=== PATIENT | female | born 1950 | race Caucasian/White ===

== ENCOUNTER → 2023-06-07 09:08 | Day surgery (SDC) | payer MEDICARE, OTHER, SELFPAY ==
--- NOTE | 2023-06-07 10:53 | ITS.CL.CARDI ---
Hospital Staff Pharmacist - Cardioversion
Cardioversion
Procedure Report:
Date of Procedure:
Procedure: Cardioversion
Indication: Symptomatic atrial fibrillation
Performing Physician: Benjamín Esteves MD
Technique: The patient was brought to the holding area. Signed informed consent was obtained. A time out was called and performed. The patient was anesthetized by the anesthesia service. Anticoagulation status was reviewed and appropriate. R2 pads
were placed anteriorly and posteriorly. A 200 J synchronized biphasic shock restored atrial paced rhythm without significant bradycardia. There were no complications.
Conclusion: Uncomplicated cardioversion from atrial fibrillation to atrial paced rhythm.
Recommendation: Routine post cardioversion care. Continue ad terminal makeup operator anticoagulation.
[2023-06-07 11:08] VITALS: BMI 30.2
== END ==
LOC: CATH 09:08
PROVIDERS: ATTENDING PHYSICIAN Internal Medicine Cardiovascular Disease
DX: I48.91 Unspecified atrial fibrillation (principal); Z79.01 Long term (current) use of anticoagulants; I25.10 Atherosclerotic heart disease of native coronary artery without angina pectoris; Z95.5 Presence of coronary angioplasty implant and graft; E11.9 Type 2 diabetes mellitus without complications; Z79.84 Long term (current) use of oral hypoglycemic drugs
CPT/HCPCS: 92960; 93005

== ENCOUNTER → 2023-07-04 09:43 | Outpatient (REF) | payer MEDICARE, SELFPAY ==
[2023-07-04 10:45] LABS: % Basophils 0.7 % (0-2); % Eosinophils 3.6 % (0-6); % Immature Granulocytes 0.3 % (0-0.5); % Lymphocytes 18.3 % (20.5-51.1); % Monocytes 7.5 % (1.7-9.3); % Neutrophils 69.6 % (42.2-75.2); Absolute Basophils 0.1 10^3/uL (0-0.2); Absolute Eosinophils 0.2 10^3/uL (0-0.7); Absolute Lymphocytes 1.2 10^3/uL (1.2-3.4); Absolute Monocytes 0.5 10^3/uL (0.1-0.6); Absolute Neutrophils 4.7 10^3/uL (1.4-6.5); Hematocrit 42.6 % (37.0-47.0); Hemoglobin 14.5 g/dL (12.0-16.0); Mean Corpuscular Hgb 33.6 pg (27.0-31.0); Mean Corpuscular Volume 98.8 fL (81.0-99.0); Mean Platelet Volume 11.4 fL (7.4-10.4); Nucleated Red Blood Cells % 0 %; Platelet Count 267 10^3/uL (130-400); Red Blood Cell Count 4.31 10^6/uL (4.20-5.40); White Blood Cell Count 6.8 10^3/uL (4.8-10.8)
[2023-07-04 11:12] LABS: INR 2.93; PT 30.5 Sec (11.4-14.6)
[2023-07-04 11:35] LABS: ALT (SGPT) 32 U/L (0-35); AST (SGOT) 36 U/L (14-36); Albumin 3.9 g/dl (3.5-5.0); Alkaline Phosphatase 80 U/L (38-126); Blood Urea Nitrogen 23 mg/dl (7-17); Calcium 9.1 mg/dl (8.4-10.2); Carbon Dioxide 29 mmol/L (22-30); Chloride 98 mmol/L (98-107); Glucose 100 mg/dl (70-99); Magnesium 2.3 mg/dl (1.6-2.3); Potassium 3.7 mmol/L (3.5-5.1); Sodium 135 mmol/L (135-145); Total Bilirubin 0.7 mg/dl (0.2-1.3); Total Protein 6.7 g/dl (6.3-8.2); eGFR 59.49
== END ==
LOC: SDSPAT 09:43
PROVIDERS: ATTENDING PHYSICIAN Internal Medicine Cardiovascular Disease
DX: Z01.818 Encounter for other preprocedural examination (principal); I48.0 Paroxysmal atrial fibrillation
CPT/HCPCS: 36415; 80053; 83735; 85025; 85610; 86850; 86900; 86901; 93005

== ENCOUNTER 2023-07-11 08:05 | Day surgery (SDC) | payer MEDICARE, SELFPAY ==
--- NOTE | 2023-07-04 10:17 | HPS.HSE ---
Family Physician
-
Family Physician: INTERVIEWE UNKNOWN - PT NOT
Chief Complaint
-
Paroxysmal atrial fibrillation.
History of Present Illness
The patient is a 72-year-old female presenting today for paroxysmal atrial fibrillation. The patient reports marked fatigue, lightheadedness, and dizziness secondary to this diagnosis. She previously underwent pulmonary vein isolation for
her arrhythmia in 2021. She has also undergone 2 cardioversions, with the last occurring in May 2023. Unfortunately, her atrial fibrillation returned within 24 hours of her last cardioversion. She is on current pharmacological therapy with
Amiodarone and Carvedilol. She takes Coumadin for oral anticoagulation. She notes that her current symptoms are greatly interfering with her activities of daily living and are overall impacting her quality of life. She is interested in pursuing
pulmonary vein isolation again for further arrhythmia management. She denies any current complaints today such as chest pain, shortness of breath, vomiting, diarrhea, cough, sore throat, or fever.
Medical History
Past Medical History
Past Medical History: Reports Other
Additional Past Medical History:
1. Paroxysmal atrial fibrillation, status post pulmonary vein isolation, 2021, and cardioversion x2; pharmacological therapy with Amiodarone and Carvedilol, oral anticoagulation with Coumadin.
2. Asymptomatic hypotension.
3. Hyperlipidemia.
4. Coronary artery disease, status post PCI with Xience obtuse marginal stent 2020.
5. Ventricular tachycardia, status post biventricular ICD implant with subsequent generator change 05/2018.
6. Chronic systolic heart failure, reduced ejection fraction.
7. Dilated cardiomyopathy.
8. Status post [employer] Phil mechanical aortic valve replacement, 2001, on chronic Coumadin.
9. Mild-moderate mitral regurgitation.
10. Mild tricuspid regurgitation.
11. GERD.
12. Colon polyps.
13. Chronic nausea.
14. Degenerative disc disease.
15. Osteoarthritis, status post right total knee arthroplasty, 2013, and left total knee arthroplasty 2018.
16. Complex migraines.
17. Hypothyroidism.
18. Breast cancer, 1996, with recurrence 2001, status post left and right lumpectomy, radiation, and chemotherapy.
19. Melanoma, status post excision.
20. Depression.
21. Anxiety.
22. Osteopenia.
23. Acute bronchitis and UTI, mid May 2023, treated with antibiotic therapy.
24. Obesity, BMI 31.1.
Past Surgical History: Reports Other
Additional Past Surgical History:
1. Pulmonary vein isolation.
2. Cardioversion x2.
3. Transesophageal echocardiogram.
4. Biventricular ICD implant.
5. ICD generator change.
6. [employer] Phil mechanical aortic valve replacement.
7. Right total knee arthroplasty.
8. Left total knee arthroplasty.
9. .
10. Partial hysterectomy.
11. Bilateral oophorectomy.
12. Left foot surgery.
13. Left and right breast lumpectomy with lymph node excision.
14. Melanoma excision.
15. Bilateral cataract extraction.
16. Colonoscopy x3.
Social History
Tobacco: Non-smoker
Alcohol: None
Personal:
Living: Other (She lives with her in a one story home. )
Family History
Family History: Not pertinent
Allergies / Home Medications
Allergy/Medication List:
Home medications:
1. Acetaminophen 650 mg p.o. every 4 hours as needed.
2. Amiodarone 100 mg p.o. every evening.
3. Calcium with vitamin D 1 tablet p.o. every evening.
4. Carvedilol 6.25 mg p.o. twice a day.
5. Citalopram 40 mg p.o. daily.
6. Cyanocobalamin 1000 mcg p.o. daily.
7. Entresto 24-26 mg, 1 tablet p.o. twice a day.
8. Zetia 10 mg p.o. every evening.
9. Furosemide 40 mg p.o. daily.
10. Jardiance 10 mg p.o. daily.
11. Levothyroxine 112 mcg p.o. daily.
12. Pantoprazole 40 mg p.o. daily.
13. Potassium Chloride 10 meq p.o. daily.
14. Prolia 60 mg subcutaneous every 6 months.
15. Repatha 140 mg subcutaneous every 2 weeks.
16. Warfarin 3 mg p.o. every evening.
Allergies: Statins.
Review of Systems
-
A 12 point ROS was completed and negative except as noted: Yes
Physical Exam
Vital Signs
Blood pressure 99/58. Heart rate 71. Respirations 18. Pulse ox 95% on room air.
Height 5 feet, 3.5 inches. Weight 80.8 kg. BMI 31.1.
Physical Exam
General: Well Developed, Well Nourished and No Apparent Distress
HEENT: NormoCephalic, Moist mucous membranes, Atraumatic and PERRLA
Respiratory: Clear
Cardiac: Irregular Rhythm and Other (ICD site intact. )
GI: Soft, Non Tender, Non Distended and Other (Obese. )
Musculoskeletal: No Edema and Normal Gait & Station
Skin: Warm and Dry
Neuro: AO x 3 and No Motor Deficits
Laboratory Results
-
DIAGNOSTIC STUDIES as of 07/04/2023: White blood cell count 6.8. Hemoglobin 14.5. Platelet count 267,000. PT 30.5. INR 2.93. Sodium 135. Potassium 3.7. BUN 23. Creatinine 1.0. Glucose 100. Calcium 9.1. Magnesium 2.3. AST 36. ALT 32. Albumin 3.9.
Type and screen A positive.
EKG 07/04/2023: Ventricular-paced rhythm. Biventricular pacemaker detected.
Echocardiogram 02/08/2023: Severely reduced left ventricular systolic function with a visually estimated ejection fraction of 20-25% and 29% by Cummins's method of disks.�The ventricle is globally hypokinetic. Mildly dilated right ventricle. Mild
biatrial dilation. Mild to moderate mitral regurgitation.� Mitral annular calcification is present. A 25 mm [place] [employer] mechanical valve is in the aortic position with a mean gradient of 8 mmHg.�Trace aortic insufficiency. Mild tricuspid
regurgitation with estimated pulmonary artery systolic pressures of 20-25 mmHg. When compared to the most recent echocardiogram from 08/09/2022, there is been no significant change.
Cardiac catheterization 02/09/2023: Non-obstructive coronary artery disease. [id number]-OM1 stent from 2020 is widely patent.
Impression/Plan
-
IMPRESSION/PLAN:
1. Paroxysmal atrial fibrillation: The patient is a need of pulmonary vein isolation with Dr. Cooper Arias on 07/11/2023. The benefits and risks of the procedure have been explained to the patient. The patient understands these risks and wishes
to proceed. She will not be required to undergo a pre-procedural transesophageal echocardiogram as she has been compliant with her home oral anticoagulation. She is aware to continue her Coumadin up until the night prior to her procedure. She will
take no medications the morning of her procedure.
[2023-07-04 10:35] VITALS: BMI 31.1
[2023-07-11] VITALS (14 sets, daily range): BP systolic 89–111; BP diastolic 44–78; BMI 31.1
[2023-07-11 09:23] LABS: INR 2.44; PT 26.4 Sec (11.4-14.6)
--- NOTE | 2023-07-11 14:43 | ITS.CL.ABL ---
Gristmill Operator - Ablation
Ablation
Procedure Report:
ELECTROPHYSIOLOGIC STUDY AND POSSIBLE ABLATION
DATE: July 11, 2023
Primary Care Provider: Dr. Ramos Franco
Primary care worker: Dr. Marissa Arias
INDICATION:
Symptomatic Atrial Fibrillation and atrial tachycardia.
Persistent
HISTORY: See H and P.
Symptomatic AF, poorly controlled with attempted medical therapy.
She has a complex past medical history
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
disease and heart failure with reduced ejection fraction.
She has fluctuating left ventricular ejection fraction with heart failure with reduced ejection fraction. She is currently on good medications however low blood pressure and dizziness limits up-titration of medications and addition of Aldactone
(which she has failed on multiple occasions). Ejection fraction previously 45%, however has decreased to 20 to 25% that has been stable there since at least 09/2021.
She has history of coronary disease with cardiac catheterization and OM stent 10/2020. Left heart cath 02/09/2023 stable with patent prior stent and otherwise nonobstructive coronary disease.�
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
With recurrences of atrial tachyarrhythmia she is more symptomatic. More fatigued. She is poorly tolerated higher doses of amiodarone and is currently on 100 mg daily. Symptoms she relates the amiodarone includes fatigue a flushing sensation at
times and possibly nausea.
Electrocardiogram demonstrates atrial fibrillation with VVI pacing (left ventricular pacing via coronary sinus pacing lead) and corrected QT interval of 135 ms.
Blood work from July 04, 2023 is reviewed and demonstrates BUN and creatinine of 23 and 1 with estimated GFR of 60, potassium 3.7, sodium 135, normal LFTs. Hemoglobin and hematocrit 14.5 and 42.6. INR 2.9.
HAS-BLED:
Age
CHADSVASc: 3
CHF, NYHA Class 3 and HFrEF, EF 25%.
Age
F Gender
(Of note, she is chronically on warfarin anticoagulation due to mechanical aortic valve from 2001)
PRESENTING RHYTHM: Irregular atrial tachycardia with waffling activation sequence in the coronary sinus decapolar catheter
HISTORY: See H and P.
Symptomatic AF and AT, poorly controlled with attempted medical therapy.
ANTIARRHYTHMIC DRUG: Amiodarone 100 mg daily, continued
ANTICOAGULATION: Warfarin
'TIME-OUT': called and confirmed.
SEDATION/ANESTHESIA: provided via the anesthesia department using general anesthesia.
PROCEDURE:
Ultrasound Guidance performed by wv was utilized for femoral venous Vascular Access b/l.
A decapolar CS catheter was placed within the CS for mapping and pacing.
The intracardiac ultrasound catheter was positioned in the RA for continuous intracardiac ultrasound imaging.
Heparin bolus and infusion to target ACT at 300 -350 seconds was administered. Transseptal puncture was performed. This entailed advancing a sheath with dilator into the superior vena cava and withdrawing both (monitoring intracardiac ultrasound,
fluoroscopy and tip pressure) with the tip oriented toward the atrial septum. The fossa ovalis was engaged (indicated by sudden displacement of the sheath tip as well as tenting of the fossa seen on intracardiac ultrasound). Left atrial access
required a pass with the Brockenbrough needle extended. Left atrial catheter position was confirmed by pressure monitoring as well as fluoroscopy. The sheath was advanced over the dilator and positioned in the left atrium.
Cardioversion restored sinus rhythm. Atrial tachycardia resumed, irregular.
Geometry and voltage mapping was performed using the Medtronic Pulse Select PFA catheter and Navex 3-D electroanatomical mapping.
A 3-D map was created using Navex.
There is ostial isolation at the left superior pulmonary vein however there is lack of wide area antral ablation towards its dome.
The Medtronic Pulse Select PFA catheter and system was used for cardiac ablation. Catheter positioning was guided and confirmed using both I.C.E. and fluoroscopy.
Energy was applied to isolate left superior pulmonary vein and a wider area circumferential fashion.
During mapping, short runs of polymorphic VT nonsustained were observed then a sustained run was observed requiring external cardioversion.
During continued mapping as well as delivery of pulsed electric field ablation once again nonsustained VT/polymorphic VT followed by sustained polymorphic VT requiring external cardioversion was observed.
There is no direct correlation to energy charging or energy delivery. However given that there were repeated episodes of polymorphic VT requiring external cardioversion it was decided to exchange the PFA catheter for a traditional 4 mm irrigated
tip contact sensing RF ablation catheter. First however hide entry electroanatomical mapping was performed using the [employer] grid catheter which demonstrated that there is a gap at the right inferior pulmonary vein towards its posterior inferior
quadrant and there is near complete posterior wall isolation except for just outside the right inferior pulmonary vein towards the posterior wall of the left atrium.
Using radiofrequency energy delivery first the right inferior pulmonary vein was reactivated and then additional ablation lesion set to isolate the posterior wall of the left atrium was performed.
Care was taken to position the tip of the esophageal temperature probe at level of ablation to monitor closely for lumen esophageal temperature change. Fluoroscopically the esophagus is canted towards the left-sided pulmonary veins were no RF
energy was delivered. During RF energy delivery there is no appreciable change in luminal esophageal temperature.
During catheter manipulation there were salvos of sustained self terminating irregular atrial tachycardias most commonly with a proximal to distal activation sequence on the coronary sinus catheter. Differential pacing from both the proximal and
distal poles of the coronary sinus catheter demonstrated long post pacing intervals. It was then decided to map the right atrium with the high density grid mapping catheter but once again there is oscillation in both activation sequence as well as
cycle length of the tachycardia rendering it on mappable.
Of note, there is marked fractionation of electrical signals throughout the right atrium and this is likely playing a role in her recurrent atrial tachycardias.
I.C.E. :
Pre-Ablation Post-Ablation
LVEF: 20 % 20%
WMA: Global global
Pericardial effusion: None none
COMPLICATIONS:
Polymorphic ventricular tachycardia sustained x 2 episodes, both successfully cardioverted with external DC cardioversion.
-Not related to energy delivery
-Did occur with PVCs which were spontaneous.
-Of note, discussed with family afterwards and daughter tells me this has happened previously when she has received general anesthesia.
SUMMARY:
- Mapping and ablation to re-isolate the PVs
- Additional AF ablation set after PVI, reisolation of the left atrial posterior wall.
- 3-D Electroanatomical Mapping
- Intracardiac Ultrasound
Post ablation, I discussed today's findings and results with the patient's and daughter.
RECOMMENDATIONS:
- Observe in monitored bed.
- Maintain oral anticoagulation.
- Continue amiodarone at 100 mg daily to suppress recurrent mappable irregular atrial tachycardias
Of note, there is marked fractionation of electrical signals throughout the right atrium and this is likely playing a role in her recurrent atrial tachycardias.
I discussed with her family that if she is unable to tolerate amiodarone we could look into other options.
Her QT interval is not prolonged and renal function is essentially normal, we could consider dofetilide if it is not cost prohibitive
- PMVT which may be related to general anesthesia agents.
Of note propofol patient reported to have a variety of conduction system effects including effects on repolarization which may be proarrhythmic in some patients.
- Office visit with me in 3 months.
- Continue cardiovascular care with Dr Marissa Arias
Copy to:
Dr. Ramos Franco
Dr. Marissa Arias
[2023-07-11] MEDS: ANESTHETIC LOZENGE 1 LOZENGE PO (14:56)
--- NOTE | 2023-07-11 16:01 | CM ---
priced dofetilide with pts perscript plan- [employer] ([phone]) ----dofetilide will require a prior auth, it is a teir 4, but after it gets approved her monthly copay is $ 32.59.
the # to get prior auth is: [phone]
--- NOTE | 2023-07-11 16:21 | PTCARENOTE ---
Received patient from recovery area after PVI under GA. Patient AAO but sleepy and voice hoarse. Bilateral groin dressings are dry and intact with bilateral pedal pulses palpable, reinforced post activity restrictions. Oriented to room and plan of
care, AV paced on the monitor. Monitoring VS as per protocol, family at the bedside, call aldridge within reach.
--- NOTE | 2023-07-11 16:27 | CM ---
Chart reviewed. Patient is independent of ADLS, lives with her in a 1 STH, 2 JORGE, she does not use any DME but has SPC and walkers in the home. Plan is for the patient to return home. CM to follow
[2023-07-11] MEDS: COUMADIN 3 MG PO (18:01)
[2023-07-11] MEDS: ZETIA 10 MG PO (18:02)
[2023-07-11] MEDS: PACERONE 100 MG PO (18:02)
--- NOTE | 2023-07-11 18:38 | PTCARENOTE ---
Figure of 8 sutures removed from bilateral groins, 4x4 and tegaderm applied. No bleeding or hematoma noted, HOB elevated, patient waiting for dinner, offers no complaints, VSS.
[2023-07-11] MEDS: COREG PO (21:01)
[2023-07-11] MEDS: ENTRESTO 24 MG/26 MG PO (21:01)
--- NOTE | 2023-07-12 00:45 | PTCARENOTE ---
Received pt at handoff. B/l rodrigoin c/d/i. Pt ambulatory to bathroom. Assessment noted as documented. BP 89/40. Coreg and Entresto held per Genny Torres MD. Pt offers no complaints at this time. Currently resting in bed; call luis carlos w/in reach.
[2023-07-12 02:46] VITALS: BP 103/53
[2023-07-12 03:24] LABS: Hematocrit 33.1 % (37.0-47.0); Hemoglobin 11.8 g/dL (12.0-16.0); Mean Corp Hgb Conc. 35.6 g/dL (33.0-37.0); Mean Corpuscular Hgb 33.8 pg (27.0-31.0); Mean Corpuscular Volume 94.8 fL (81.0-99.0); Mean Platelet Volume 11.1 fL (7.4-10.4); Platelet Count 205 10^3/uL (130-400); Red Blood Cell Count 3.49 10^6/uL (4.20-5.40); Red Cell Dist. Width 13.9 % (11.5-14.5); White Blood Cell Count 7.1 10^3/uL (4.8-10.8)
[2023-07-12 03:47] LABS: PT 27.8 Sec (11.4-14.6)
[2023-07-12 03:49] LABS: Blood Urea Nitrogen 21 mg/dl (7-17); Calcium 8.7 mg/dl (8.4-10.2); Carbon Dioxide 26 mmol/L (22-30); Chloride 100 mmol/L (98-107); Estimated Creatinine Clearance 73 ml/min; Glucose 146 mg/dl (70-99); Magnesium 2.3 mg/dl (1.6-2.3); Potassium 3.7 mmol/L (3.5-5.1); Sodium 133 mmol/L (135-145); eGFR > 60.00
[2023-07-12 07:36] VITALS: BP 101/56
--- NOTE | 2023-07-12 08:11 | W.PN.CARDCBS ---
Addendum entered and electronically signed by Charles Becerra MD 07/12/23 13:20:
patient seen and examined
no VT overnight
AV pacing without atrial arrhythmia on telemetry
exam:
heent ncat
jvp 6 cor regular
lungs ctab
abd soft nt nd
no ext edema
aao x3
PCP: Ramos Franco MD
CDY: Marissa Arias MD
72 y/o, presents with recurrent symptomatic AFib, prior PVI 12/2021, notable markedly enlarged LA at 8cm, w/mechanical AVR in 2001. [id number] and has been maintained on warfarin with goal INR 2.5-3.5.
S/P Redo PVI with PFA. Intraop complicated with multiple episodes VT requiring defibrillation x2, as well as AFib with cardioversion. Marked fractionation of electrical signals in RA, likely contributing to recurrent atrial tachycardias.
Currently comfortable overnight, V/AV paced with underlying sinus rhythm, no VT/arrhythmia.
IMPRESSION:
AFib, prior PVI (12/2021)
Redo PVI with PFA and RFA, 07/11/23
Intraoperative nonsustained VT/polymorphic VT with defibrillation
LAE, 8cm
Mixed Ischemic/Non ischemic CMP
Chronic systolic HFrEF, 20-25%
prior ICD with Bi-V ICD upgrade (09/2021)
Bilateral breast cancer in 1996 and 2001, s/p lumpectomies, XRT, and chemo with Adriamycin
CAD, prior OM PCI (2020)
, s/p mechanical AVR (2001)
Mod-Sev MR, Severe TR
Hypothyroid
HLD
PLAN:
Tele- V/AV paced, underlying sinus rhythm, no VT/arrhythmias
groin sites stable, OOB ambulating
continue warfarin- INR 2.6 this morning
continue amiodarone 100mg daily- intolerant of higher doses with fatigue, flushing, nausea
if 100mg becomes intolerant, can consider dofetilide- would need prior auth before starting- see CM note
PMVT possibly r/t general anesthesia, propofol- none overnight on tele
BP 90-100s overnight- this is baseline, asymptomatic
Followup with Dr. Arias as arranged
Home today
Original Note:
Today's Communication / Plan
-
continue warfarin, amiodarone
followup w/Dr. Arias
home today
Impression / Plan
-
PCP: Ramos Franco MD
CDY: Marissa Arias MD
72 y/o, presents with recurrent symptomatic AFib, prior PVI 12/2021, notable markedly enlarged LA at 8cm, w/mechanical AVR in 2001. [id number] and has been maintained on warfarin with goal INR 2.5-3.5.
S/P Redo PVI with PFA. Intraop complicated with multiple episodes VT requiring defibrillation x2, as well as AFib with cardioversion. Marked fractionation of electrical signals in RA, likely contributing to recurrent atrial tachycardias.
Currently comfortable overnight, V/AV paced with underlying sinus rhythm, no VT/arrhythmia.
IMPRESSION:
AFib, prior PVI (12/2021)
Redo PVI with PFA and RFA, 07/11/23
Intraoperative nonsustained VT/polymorphic VT with defibrillation
LAE, 8cm
Mixed Ischemic/Non ischemic CMP
Chronic systolic HFrEF, 20-25%
prior ICD with Bi-V ICD upgrade (09/2021)
Bilateral breast cancer in 1996 and 2001, s/p lumpectomies, XRT, and chemo with Adriamycin
CAD, prior OM PCI (2020)
, s/p mechanical AVR (2001)
Mod-Sev MR, Severe TR
Hypothyroid
HLD
PLAN:
Tele- V/AV paced, underlying sinus rhythm, no VT/arrhythmias
groin sites stable, OOB ambulating
continue warfarin- INR 2.6 this morning
continue amiodarone 100mg daily- intolerant of higher doses with fatigue, flushing, nausea
if 100mg becomes intolerant, can consider dofetilide- would need prior auth before starting- see CM note
PMVT possibly r/t general anesthesia, propofol- none overnight on tele
BP 90-100s overnight- this is baseline, asymptomatic
Followup with Dr. Arias as arranged
Home today
Progress Note - Wool Sampler
Subjective
Date of Service: July 12, 2023
Denies cp/palps/dypsnea
sore throat w/dry cough- using lozenges with relief
oob ambulating
groin sites stable
Objective
Labs:
07/12/23 03:11
07/12/23 03:11
Labs
Hgb 11.8 g/dL (12.0-16.0) L 07/12/23 03:11
Hct 33.1 % (37.0-47.0) L 07/12/23 03:11
Plt Count 205 10^3/uL (130-400) 07/12/23 03:11
PT 27.8 Sec (11.4-14.6) H 07/12/23 03:11
INR 2.60 07/12/23 03:11
Sodium 133 mmol/L (135-145) L 07/12/23 03:11
Potassium 3.7 mmol/L (3.5-5.1) 07/12/23 03:11
BUN 21 mg/dl (7-17) H 07/12/23 03:11
Creatinine 0.7 mg/dL (0.6-1.0) 07/12/23 03:11
Glucose 146 mg/dl (70-99) H 07/12/23 03:11
Vital Signs and I&O:
Vital Signs
Temp Pulse Resp BP Pulse Ox
98 F 72 16 103/53 97
07/12/23 07:34 07/12/23 07:34 07/12/23 07:34 07/12/23 02:46 07/12/23 07:34
Vital Signs
Temp Pulse Resp BP Pulse Ox
98 F 72 16 103/53 97
07/12/23 07:34 07/12/23 07:34 07/12/23 07:34 07/12/23 02:46 07/12/23 07:34
Intake & Output
07/10/23 07/11/23 07/12/23 07/13/23
06:59 06:59 06:59 06:59
Intake Total 480 / 480
Balance 480 / 480
Physical Exam
Physical Exam
AAOx3, MAEE 5/5
RRR S1 S2 no murmurs
CTA bilat, non labored
soft abd, + bs
bilat groin sites without ht/bleeding, non tender
bilat extremities w/palpable distal pulses, no edema
[2023-07-12] MEDS: CELEXA 40 MG PO (08:35)
[2023-07-12] MEDS: COREG 6.25 MG PO (08:35)
[2023-07-12] MEDS: LASIX 40 MG PO (08:35)
[2023-07-12] MEDS: PROTONIX 40 MG PO (08:35)
[2023-07-12] MEDS: ENTRESTO 24 MG/26 MG 1 TAB PO (08:36)
[2023-07-12] MEDS: SYNTHROID 112 MCG PO (08:36)
[2023-07-12] MEDS: JARDIANCE 10 MG PO (08:36)
[2023-07-12] MEDS: KCL 10 MEQ PO (08:36)
--- NOTE | 2023-07-12 09:43 | W.DS.TRANS ---
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
-
Discharge Instructions:
Sleep Apnea Risk Low
Discharge Diagnosis/Procedures AFib, s/p ablation
Diet Low Cholesterol
Driving Restrictions No driving for 24 hours
Instructions:
Stand-Alone Forms: DC Instructions- Cath/EP Lab
Changes to Home Medications: No
Discharge Medications:
DC Medications w/original date entered in [place]
citalopram 20 mg tablet 40 mg PO DAILY 09/12/18
Calcium W/ Vitamin D 1 tab PO QPM Supplement 10/07/20
empagliflozin 10 mg tablet (Jardiance) 10 mg PO DAILY heart health 10/07/20
evolocumab 140 mg/mL subcutaneous pen injector (Repatha SureClick) 140 mg SQ Q2W High cholesterol 10/07/20
furosemide 40 mg tablet 40 mg PO DAILY Fluid retention/Swelling 10/07/20
levothyroxine 112 mcg tablet 112 mcg PO DAILY AT 0700 Thyroid 10/07/20
pantoprazole 40 mg tablet,delayed release 40 mg PO DAILY #90 tabs 10/10/20
acetaminophen 325 mg tablet 650 mg PO Q4HPRN PRN Pain 08/13/21
denosumab 60 mg/mL subcutaneous syringe (Prolia) 60 mg SQ [id number] BONES 08/13/21
ezetimibe 10 mg tablet 10 mg PO QPM High cholesterol 08/13/21
carvedilol 6.25 mg tablet 6.25 mg PO BID Blood pressure 09/28/21
sacubitril 24 mg-valsartan 26 mg tablet (Entresto) 1 tab PO BID Heart Failure 02/07/23
amiodarone 200 mg tablet 100 mg PO QPM 06/07/23
cyanocobalamin (vitamin B-12) 1,000 mcg tablet (Vitamin B-12) 1,000 mcg PO DAILY 06/07/23
potassium chloride 10 mEq oral packet 10 meq PO DAILY 06/29/23
warfarin 3 mg tablet 3 mg PO QPM 07/11/23
Home Medication Changes
Pending Results: No
[2023-07-12 10:18] LABS: ACT-LR - POC > 397 Seconds (116-155)
[2023-07-12 10:18] LABS: ACT-LR - POC > 397 Seconds (116-155)
[2023-07-12 10:18] LABS: ACT-LR - POC > 397 Seconds (116-155)
== END 2023-07-12 11:58 | disposition home or self-care (01) ==
LOC: CATH 08:05
PROVIDERS: Nurse Practitioner; ATTENDING PHYSICIAN Internal Medicine Cardiovascular Disease; FAMILY PHYSICIAN Psychiatry & Neurology Neurology
DX: I48.0 Paroxysmal atrial fibrillation (principal); I47.20 Ventricular tachycardia, unspecified; I42.8 Other cardiomyopathies; I11.0 Hypertensive heart disease with heart failure; I50.22 Chronic systolic (congestive) heart failure; Z95.810 Presence of automatic (implantable) cardiac defibrillator; I25.10 Atherosclerotic heart disease of native coronary artery without angina pectoris; I42.0 Dilated cardiomyopathy; I08.3 Combined rheumatic disorders of mitral, aortic and tricuspid valves; K21.9 Gastro-esophageal reflux disease without esophagitis; Z86.010 Personal history of colon polyps; M19.90 Unspecified osteoarthritis, unspecified site; E03.9 Hypothyroidism, unspecified; G43.909 Migraine, unspecified, not intractable, without status migrainosus; Z85.3 Personal history of malignant neoplasm of breast; Z85.820 Personal history of malignant melanoma of skin; F41.9 Anxiety disorder, unspecified; M85.80 Other specified disorders of bone density and structure, unspecified site; J20.9 Acute bronchitis, unspecified; E78.5 Hyperlipidemia, unspecified; Z79.01 Long term (current) use of anticoagulants; Z79.84 Long term (current) use of oral hypoglycemic drugs
CPT/HCPCS: C1769; C1894; C1732; C1730; C1892; C1759; 76937; 80048; 83735; 85027; 85347; 85610; 93005; 93656; 93657; C2630

== ENCOUNTER → 2023-09-19 09:56 | Outpatient (REF) | payer MEDICARE, OTHER, SELFPAY | LOC: RCS 09:56 | PROVIDERS: ATTENDING PHYSICIAN Internal Medicine Cardiovascular Disease | DX: I48.0 Paroxysmal atrial fibrillation (principal) | CPT/HCPCS: 93306 ==

== ENCOUNTER 2024-03-13 08:40 | Day surgery (SDC) | payer MEDICARE, OTHER, SELFPAY ==
--- NOTE | 2024-03-13 10:12 | ITS.CL.CARDI ---
Dog Handler Or Trainer - Cardioversion
Cardioversion
Procedure Report:
Date of Procedure: March 13 2024
Procedure: Cardioversion
Indication: Symptomatic atrial fibrillation
Performing Physician: Rambo Torres DO, FACC
Technique: The patient was brought to the holding area. Signed informed consent was obtained. A time out was called and performed. The patient was anesthetized by the anesthesia service. Anticoagulation status was reviewed and appropriate. R2 pads
were placed anteriorly and posteriorly. A 200 J synchronized biphasic shock restored normal sinus rhythm without significant bradycardia. There were no complications.
Conclusion: Uncomplicated cardioversion from atrial fibrillation to sinus rhythm.
Recommendation: Routine post cardioversion care. Continue terminologist anticoagulation.
== END 2024-03-13 10:45 | disposition home or self-care (01) ==
LOC: CATH 08:40
PROVIDERS: ATTENDING PHYSICIAN Nuclear Medicine Nuclear Cardiology; OTHER PHYSICIAN Internal Medicine Cardiovascular Disease
DX: I48.0 Paroxysmal atrial fibrillation (principal); I11.0 Hypertensive heart disease with heart failure; I50.22 Chronic systolic (congestive) heart failure; E78.5 Hyperlipidemia, unspecified; I25.10 Atherosclerotic heart disease of native coronary artery without angina pectoris; Z95.5 Presence of coronary angioplasty implant and graft; I42.0 Dilated cardiomyopathy; I08.1 Rheumatic disorders of both mitral and tricuspid valves; K21.9 Gastro-esophageal reflux disease without esophagitis; E11.9 Type 2 diabetes mellitus without complications; Z95.810 Presence of automatic (implantable) cardiac defibrillator; Z85.3 Personal history of malignant neoplasm of breast; Z79.84 Long term (current) use of oral hypoglycemic drugs; Z79.01 Long term (current) use of anticoagulants
CPT/HCPCS: 92960; 93005

== ENCOUNTER → 2024-06-27 16:35 | Outpatient (REF) | payer MEDICARE, OTHER, SELFPAY ==
[2024-06-27 17:09] LABS: Urine Albumin 1+ (Neg - Trace); Urine Bilirubin Negative (Negative); Urine Character Slightly Cloudy (Clear); Urine Color Yellow; Urine Glucose 4+ (Negative); Urine Ketone Negative (Negative); Urine Leukocyte 1+ (Negative); Urine Nitrite Negative (Negative); Urine Occult Blood 4+ (Negative); Urine Urobilinogen Negative (Neg - 1+)
[2024-06-27 17:42] LABS: Urine White Cell 21-25 /HPF (0-5)
== END ==
LOC: REG 16:35
PROVIDERS: ATTENDING PHYSICIAN Physician Assistant Medical
DX: R30.0 Dysuria (principal)
CPT/HCPCS: 81003; 81015; 87077; 87086

== ENCOUNTER 2024-07-03 09:05 | Day surgery (SDC) | payer MEDICARE, OTHER, SELFPAY ==
[2024-07-03 09:53] LABS: INR 2.37
--- NOTE | 2024-07-03 12:09 | ITS.CL.CARDI ---
[employer] - Cardioversion
Cardioversion
Procedure Report:
Date of Procedure: Jul 03 2024
Procedure: Cardioversion
Indication: Symptomatic atrial fibrillation
Performing Physician: Rambo Torres DO, FACC
Technique: The patient was brought to the holding area. Signed informed consent was obtained. A time out was called and performed. The patient was anesthetized by the anesthesia service. Anticoagulation status was reviewed and appropriate. R2 pads
were placed anteriorly and posteriorly. Following successful [place], a 200 J synchronized biphasic shock and subsequent 300 J synchronized biphasic shocks were given which were not successful in restoring normal sinus rhythm. A 360 J shock was then
successful synchronized biphasic shock was then successful in converting to sinus without significant bradycardia, confirmed by device interrogation. There were no complications.
Conclusion: Uncomplicated cardioversion from atrial fibrillation to sinus rhythm.
Recommendation: Routine post cardioversion care. Continue fci anticoagulation.
== END 2024-07-03 12:46 | disposition home or self-care (01) ==
LOC: CATH 09:05
PROVIDERS: ATTENDING PHYSICIAN Nuclear Medicine Nuclear Cardiology; OTHER PHYSICIAN Internal Medicine Cardiovascular Disease
DX: I48.0 Paroxysmal atrial fibrillation (principal); Z79.01 Long term (current) use of anticoagulants; I08.3 Combined rheumatic disorders of mitral, aortic and tricuspid valves; Z95.2 Presence of prosthetic heart valve; I70.0 Atherosclerosis of aorta; I08.8 Other rheumatic multiple valve diseases
CPT/HCPCS: 93312; 93320; 93325; 85610; 92960; 93005

== ENCOUNTER → 2024-11-26 14:36 | Outpatient (REF) | payer MEDICARE, OTHER, SELFPAY | LOC: DHSLP 14:36 | PROVIDERS: ATTENDING PHYSICIAN Internal Medicine Cardiovascular Disease | DX: G47.33 Obstructive sleep apnea (adult) (pediatric) (principal); G47.61 Periodic limb movement disorder; R09.02 Hypoxemia | CPT/HCPCS: 95810 ==